=== PATIENT | male | born 1960 | race Caucasian/White ===

== ENCOUNTER 2019-09-24 06:55 | Day surgery (SDC) | payer MEDICARE ==
[2019-09-24] MEDS ORDERED: ceFAZolin 1 GM in Premix Bag 1 BAG IV ONE (07:30)
[2019-09-24] MEDS ORDERED: Nozin Nasal Sanitizer NASBOTH ONE (07:30)
[2019-09-24] MEDS ORDERED: Lactated Ringers 1,000 ML IV SCH (07:30)
[2019-09-24] MEDS ORDERED: fentaNYL 250 MCG/5 ML SDV ONE (08:51)
[2019-09-24] MEDS ORDERED: Glycopyrrolate 0.2 MG/ML 5 ML MDV ONE (08:51)
[2019-09-24] MEDS ORDERED: Neostigmine Methylsulfate 1 MG/ML 5 ML Syringe ONE (08:51)
[2019-09-24] MEDS ORDERED: Dexamethasone 4 MG/ML SDV ONE (08:51)
[2019-09-24] MEDS ORDERED: Succinylcholine 200 MG/10 ML MDV ONE (08:51)
[2019-09-24] MEDS ORDERED: Ondansetron 4 MG/2 ML SDV ONE (08:51)
[2019-09-24] MEDS ORDERED: Rocuronium 50 MG/5 ML Vial ONE (08:51)
[2019-09-24] MEDS ORDERED: Propofol 200 MG/20 ML SDV ONE (08:51)
[2019-09-24] MEDS ORDERED: Bupivacaine 0.5% 30 ML SDV ONE (10:08)
[2019-09-24] MEDS ORDERED: Ketorolac 60 MG/2 ML SDV ONE (11:01)
[2019-09-24 12:22] VITALS: BP 110/79; PULSE 62
--- NOTE | 2019-09-24 22:10 | OR ---
DATE OF PROCEDURE: 09/24/2019 SURGEON: Virgilio Tatum MD PREOPERATIVE DIAGNOSES: 1. Chondromalacia, left knee, patellofemoral joint. 2. Medial meniscus tear, left knee. POSTOPERATIVE DIAGNOSES: 1. 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 2. Medial meniscus tear, degenerative, radial. PROCEDURES: Arthroscopy left knee with chondroplasty patella, chondroplasty trochlear groove with microfracture, and partial medial meniscectomy. ANESTHESIA: General. INDICATIONS: Philipp is a 59-year-old gentleman with a history of persistent and progressive pain in left knee for the past few months. He has failed physical therapy and injection. Examination and MRI are consistent with chondromalacia of the patellofemoral joint and tear of the medial meniscus. Now presents for arthroscopic treatment. Risks, benefits, potential complications of the procedure were discussed. DESCRIPTION OF PROCEDURE: After adequate anesthesia was obtained, patient was placed supine with a tourniquet about the left upper thigh. Left leg was prepped and draped in a sterile fashion. Leg was exsanguinated and tourniquet inflated to 300 mmHg pressure. Standard inferior, medial and lateral portals were established. Patellofemoral joint was inspected, which revealed fraying of the dome of the patella grade 2 and some grade 3 changes without full-thickness loss. The flap of unstable cartilage also noted in the central portion of the trochlear groove. Patella tracked well with no significant malalignment. The scope was swept into the medial compartment, which revealed a macerated tear of the midbody towards the posterior horn of the meniscus extending back in a radial fashion. Shaver was used to debride the degenerative portion of the meniscus and taking this back to a stable margin. The articular surfaces of the femoral condyle and tibial plateau were intact. Intercondylar notch revealed intact ACL and PCL. Lateral compartment with no significant findings of meniscus or articular cartilage. Moving back into the patellofemoral joint, shaver was used to debride the flap in the trochlea which was unstable and revealed a full-thickness cartilage defect, central portion of the trochlea which measured approximately 6 mm in width and 10 to11 mm in length. The base of this was debrided with a shaver and microfracture awls were then used to perform microfracture in the defect. Surrounding articular cartilage was intact. Chondroplasty of the patella was performed removing the loose articular fragments without removing significant amount of cartilage. The knee was taken through range of motion. No evidence of catching of the defect. All loose fragments were removed. The knee was drained. Scope was withdrawn. Port sites were closed in a standard fashion, infiltrated with Marcaine and a sterile dressing was applied. The patient tolerated the procedure well. There were no complications taken from the operating room in stable condition, Virgilio Tatum MD /[id number]
== END 2019-09-24 12:30 | disposition home or self-care (01) ==
LOC: JP.SDS 06:55
PROVIDERS: ATTEND Specialist
DX: S83.242A Other tear of medial meniscus, current injury, left knee, initial encounter (principal); M22.42 Chondromalacia patellae, left knee; X58.XXXA Exposure to other specified factors, initial encounter
CPT/HCPCS: 29881; 36415; 80048; 86850; 86900; 86901; A9270; J0330; J0690; J1100; J1885; J2405; J2704; J2710; J3010; J3490; J7120